=== PATIENT | male | born 1945 | race Caucasian/White ===

== ENCOUNTER 2022-12-21 18:46 | Emergency (ER) | payer MEDICARE, BC ==
[~2022-12-21] VITALS: Ht 175.3 cm; Wt 91.4 kg
[~2022-12-21 18:46] MED LIST: AMLO5TAB PO; AZEL137S4 BOTHNARES; BRIM5DRO EACHEYE; BUPR300T99 PO; CETI-194 PO; CLOP75TA34 PO; CYCL-1 PO; DUTA0.5C40 PO; FENO145T38 PO; FLUO-167 PO; LANS30CA56 PO; TRAZ-251 PO; VALS1TAB4 PO
[2022-12-21] MEDS ORDERED: MECL-262 PO (21:30)
[2022-12-21 21:52] VITALS: BP 166/86; PULSE 86; RESP 18; TEMP 97.6; O2SAT 95
--- NOTE | 2022-12-21 22:46 | NUR ---
STRATEGIC BUYER ASSESSMENT REVIEWED AND RN AGREES WITH ASSESSMENT.
== END 2022-12-21 21:56 | disposition home or self-care (01) ==
LOC: ER 18:47
DX: R42 Dizziness and giddiness (principal); H92.02 Otalgia, left ear
CPT/HCPCS: 99282

== ENCOUNTER 2023-03-03 10:01 | Day surgery (SDC) | payer MEDICARE, BC ==
[2023-02-24 09:32] LABS: BASOPHILS % (AUTO) 0.7 % (0-1); EOSINOPHILS # (AUTO) 0.1 X10'3 (0-0.9); EOSINOPHILS % (AUTO) 1.9 % (0-6); HEMATOCRIT 41.8 % (42.0-52.0); HEMOGLOBIN 14.4 g/dl (14.0-17.9); LYMPHOCYTES # (AUTO) 2.1 X10'3 (1.1-4.8); LYMPHOCYTES % (AUTO) 37.3 % (21-51); MEAN CORPUSCULAR HEMOGLOBIN 32.1 PG (27.0-31.0); MEAN CORPUSCULAR HGB CONC 34.4 g/dL (33.0-36.5); MEAN CORPUSCULAR VOLUME 93.3 FL (78-98); MEAN PLATELET VOLUME 7.4 FL (7.4-10.4); MONOCYTES # (AUTO) 0.4 X10'3 (0-0.9); MONOCYTES % (AUTO) 7.3 % (2-12); NEUTROPHILS % (AUTO) 52.8 % (42-75); PLATELET COUNT 230 X10'3 (140-440); RED BLOOD COUNT 4.48 X10'6 (4.70-6.10); RED CELL DISTRIBUTION WIDTH 13.2 % (11.5-14.5); WHITE BLOOD COUNT 5.6 X10'3 (4.5-11.0)
[2023-02-24 09:59] LABS: ALBUMIN 4.1 G/DL (3.4-5.0); ANION GAP 8 (8-16); BLOOD UREA NITROGEN 20 MG/DL (7-18); BUN/CREATININE RATIO 18.7 (10.0-20.0); CALCIUM 9.4 MG/DL (8.5-10.1); CHLORIDE 105 MMOL/L (99-107); CHOL/HDL RATIO 2.9 (0.00-4.99); CHOLESTEROL 157 MG/DL (0-200); CREATININE 1.07 MG/DL (0.60-1.10); GLUCOSE 93 MG/DL (70-104); HDL CHOLESTEROL 54 MG/DL (35-60); LDL CHOLESTEROL 77 MG/DL (50-100); POTASSIUM 3.8 MMOL/L (3.5-5.1); SODIUM 139 MMOL/L (135-145); TOTAL CARBON DIOXIDE 25.9 MMOL/L (24-32); TRIGLYCERIDES 129 MG/DL (20-135); eGFR 67 ML/MIN
[2023-02-24 10:21] LABS: APTT 31 SECONDS (22-32); INR 1.1 INR; PROTHROMBIN TIME 11.3 SECONDS (9.0-12.0)
[2023-03-03] VITALS (8 sets, daily range): BP systolic 98–149; BP diastolic 72–85; PULSE 80–98; RESP 12–16; TEMP 98; O2SAT 92–94
[~2023-03-03] VITALS: Ht 175.3 cm; Wt 94.6 kg
[~2023-03-03 10:01] MED LIST changes: +ALBU90AE INH; +AMLO10TA13 PO; -AMLO5TAB PO; +ASPI-1264 PO; +ATOR40TA72 PO; -AZEL137S4 BOTHNARES; -BRIM5DRO EACHEYE; +BUDE10.27 PO; -BUPR300T99 PO; +CHOL100046 PO; -CYCL-1 PO; -DUTA0.5C40 PO; -FENO145T38 PO; +FENO48TA10 PO; +FLO0.4C PO; +LACT1CAP65 PO; +LISI40TA13 PO; +MULT-1085 PO; +OMEG-5 PO; +THEO300T46 PO; -TRAZ-251 PO; +TURM500C4 PO; -VALS1TAB4 PO; +VITA400T10 PO
[2023-03-03] MEDS ORDERED: diphenhydrAMINE 25mg capsule PO PRN (10:20)
[2023-03-03] MEDS ORDERED: LORazepam 0.5 MG tablet PO PRN (10:20)
[2023-03-03] MEDS ORDERED: normal saline 1,000 ML IV SCH (10:20)
[2023-03-03] MEDS ORDERED: DILT120C88 PO (10:43)
[2023-03-03] MEDS ORDERED: BUDE0.5A11 NEB (10:43)
[2023-03-03] MEDS ORDERED: FENO54TA PO (10:43)
[2023-03-03] MEDS ORDERED: AZEL137S4 BOTHNARES (10:43)
[2023-03-03] MEDS ORDERED: BUPR-352 PO (10:43)
[2023-03-03] MEDS ORDERED: DUTA0.5C40 PO (10:43)
[2023-03-03] MEDS ORDERED: CYCL-1 PO (10:43)
[2023-03-03] MEDS ORDERED: IBUP-1984 PO (10:43)
[2023-03-03] MEDS ORDERED: midazolam 1 mg/ML 2ml injection ONE (14:01)
[2023-03-03] MEDS ORDERED: verapamil 2.5 mg/ml inj IV ONE (14:01)
[2023-03-03] MEDS ORDERED: nitroGLYCERIN 500mcg/5mL D5W 5 ML IV ONE (14:02)
[2023-03-03] MEDS ORDERED: iohexol 350MG/ML 100ml bottle IV ONE (14:02)
[2023-03-03] MEDS ORDERED: heparin 1,000unit/ml 10ml vial 10 ML ONE (14:02)
[2023-03-03] MEDS ORDERED: LIDOcaine 1% (10mg/ml) 2ml vial ONE (14:02)
[2023-03-03] MEDS ORDERED: iohexol 350 MG/ML 50ML vial IV ONE (14:02)
[2023-03-03] MEDS ORDERED: fentaNYL/PF 50MCG/1 ML 2ML syringe ONE (14:02)
[2023-03-03] MEDS ORDERED: OXAZEpam 15mg capsule PO PRN (15:15)
[2023-03-03] MEDS ORDERED: proCHLORperazine 10 MG/2 ml inj IV PRN (15:15)
[2023-03-03] MEDS ORDERED: ondansetron/PF 4mg/2ml inj IV PRN (15:15)
[2023-03-03] MEDS ORDERED: HYDROcodone/acetaminophen 10/325mg tab PO PRN (15:15)
[2023-03-03] MEDS ORDERED: HYDROcodone/acetaminophen 5mg/325mg tablet PO PRN (15:15)
== END 2023-03-03 17:00 | disposition home or self-care (01) ==
LOC: SSTAY O 10:01
PROVIDERS: ATTEND Student in an Organized Health Care Education/Training Program
DX: R94.39 Abnormal result of other cardiovascular function study (principal); I10 Essential (primary) hypertension; E78.00 Pure hypercholesterolemia, unspecified; I25.10 Atherosclerotic heart disease of native coronary artery without angina pectoris; J45.909 Unspecified asthma, uncomplicated; G47.33 Obstructive sleep apnea (adult) (pediatric); Z86.73 Personal history of transient ischemic attack (TIA), and cerebral infarction without residual deficits; Z79.899 Other long term (current) drug therapy
CPT/HCPCS: 36415; 80048; 80061; 85025; 85610; 85730; 93005; 93458; 99152; J1644; J2250; J3010; J3490; J7030; Q0163; Q9967; A6258; A6402; C1894

== ENCOUNTER 2024-02-07 18:04 | Emergency (ER) | payer MEDICARE, BC ==
[~2024-02-07] VITALS: Ht 175.3 cm; Wt 91.5 kg
[~2024-02-07 18:04] MED LIST changes: -ASPI-1264 PO; +AZEL137S4 BOTHNARES; +BUDE0.5A11 NEB; +BUPR-352 PO; -CETI-194 PO; +CYCL-1 PO; +DILT120C88 PO; +DUTA0.5C40 PO; -FENO48TA10 PO; +FENO54TA PO; -FLO0.4C PO; +IBUP-1984 PO
[2024-02-07 18:32] VITALS: TEMP 98.4
[2024-02-07 21:00] VITALS: BP 153/89; PULSE 69; O2SAT 98
[2024-02-07 21:35] VITALS: RESP 18
== END 2024-02-07 21:48 | disposition home or self-care (01) ==
LOC: ER 18:04
DX: S00.01XA Abrasion of scalp, initial encounter (principal); S09.8XXA Other specified injuries of head, initial encounter; R51.9 Headache, unspecified; I10 Essential (primary) hypertension; J45.909 Unspecified asthma, uncomplicated; Z79.899 Other long term (current) drug therapy; Z86.73 Personal history of transient ischemic attack (TIA), and cerebral infarction without residual deficits; Z79.51 Long term (current) use of inhaled steroids; W01.0XXA Fall on same level from slipping, tripping and stumbling without subsequent striking against object, initial encounter; Y93.89 Activity, other specified; Y92.89 Other specified places as the place of occurrence of the external cause; Y99.8 Other external cause status
CPT/HCPCS: 70450; 99284; A6402; J7030; A6449